=== PATIENT | female | born 1965 | race African-American/Black ===

== ENCOUNTER 2024-11-20 06:47 | Day surgery (SDC) | payer OTHER ==
[2024-11-19 12:36] VITALS: BMI 31.7
[2024-11-20 08:51] VITALS: TEMP 97.3
[2024-11-20 09:34] VITALS: BP 118/68; PULSE 80; RESP 15
== END 2024-11-20 09:32 | disposition home or self-care (01) ==
LOC: JASU-ENDO 06:47
PROVIDERS: ATTEND Internal Medicine Gastroenterology
PROC: 0DBN8ZX Excision of Sigmoid Colon, Via Natural or Artificial Opening Endoscopic, Diagnostic (ICD-10-PCS; principal; 2024-11-20 08:45)
DX: K57.30 Diverticulosis of large intestine without perforation or abscess without bleeding (principal); D12.7 Benign neoplasm of rectosigmoid junction; K64.8 Other hemorrhoids; Z12.11 Encounter for screening for malignant neoplasm of colon
CPT/HCPCS: 82962; 88305-TC